=== PATIENT | female | born 1935 | race Caucasian/White ===

== ENCOUNTER → 2019-09-18 | Outpatient (CLI) | payer OTHER | LOC: SJCVC 16:12 | PROVIDERS: ATTEND Internal Medicine Cardiovascular Disease | DX: I44.0 Atrioventricular block, first degree (principal); R94.31 Abnormal electrocardiogram [ECG] [EKG]; I35.0 Nonrheumatic aortic (valve) stenosis; I10 Essential (primary) hypertension; E78.00 Pure hypercholesterolemia, unspecified; R00.2 Palpitations; Z95.2 Presence of prosthetic heart valve; Z82.49 Family history of ischemic heart disease and other diseases of the circulatory system; Z79.899 Other long term (current) drug therapy ==

== ENCOUNTER 2019-11-05 17:16 | Inpatient (IN) | payer OTHER ==
[~2019-11-05] VITALS: Ht 152.4 cm; Wt 49.9 kg
[2019-11-05 17:47] VITALS: BP 145/95
[2019-11-05 18:08] LABS: ABSOLUTE NEUTROPHILS 5.2 thou/uL (1.4-8.2); BASOPHILS 0.7 % (0.0-2.0); EOSINOPHILS 0.6 % (0.0-3.0); HEMATOCRIT 37.1 % (37.0-47.0); HEMOGLOBIN 12.5 gm/dL (12.0-15.0); LYMPHOCYTES 27.1 % (24.0-44.0); MCHC 33.8 g/dL (28.0-37.0); MCV 88.9 fL (80.0-100.0); MONOCYTES 7.6 % (1.0-8.0); RBC 4.17 mil/uL (4.20-5.00); RDW 13.2 % (10.5-14.5); WBC 8.1 thou/uL (4.0-11.0)
[2019-11-05 18:13] LABS: ANION GAP 11 mmol/L (7-16); BUN 18 mg/dL (7-18); CHLORIDE 98 mmol/L (98-107); CO2 26 mmol/L (21-32); CREATININE 1.2 mg/dL (0.6-1.0); GLUCOSE 140 mg/dL (74-106); POTASSIUM 3.8 mmol/L (3.5-5.1); SODIUM 135 mmol/L (136-145)
[2019-11-05 18:21] LABS: APTT 32.1 Seconds (24.5-32.8); PROTIME 10.3 Seconds (9.3-11.4)
[2019-11-05 18:22] LABS: ALBUMIN 3.6 g/dL (3.4-5.0); DIRECT BILIRUBIN 0.1 mg/dL (<0.1-0.2); SGOT 19 U/L (15-37); SGPT 20 U/L (30-65); TOTAL BILIRUBIN 0.5 mg/dL (0.2-1.0); TOTAL PROTEIN 8.8 g/dL (6.4-8.2); TROPONIN-I <0.06 ng/mL (<0.06)
[2019-11-05 18:29] LABS: LARGE PLATELETS FEW; PLATELET COUNT 249 thou/uL (150-400)
[2019-11-05] MEDS ORDERED: CALCIUM500 MG PO (18:41)
[2019-11-05] MEDS ORDERED: TRAMADOL 50 MG50 MG PO ×2 (18:42→22:59)
[2019-11-05] MEDS ORDERED: FISH OIL 1,0001 EAC9 PO (18:45)
[2019-11-05] MEDS ORDERED: ROXIFOL-D TA500 UNIT PO (18:46)
[2019-11-05] MEDS ORDERED: HYDROCHLOROTHIA25 M2 PO (18:46)
[2019-11-05] MEDS ORDERED: VOLTAREN100 GM TOP (18:47)
[2019-11-05] MEDS ORDERED: MELATONIN5 M6 PO (18:47)
[2019-11-05] MEDS ORDERED: AMBIEN 5 MG TABL5 M1 PO (18:47)
[2019-11-05] MEDS ORDERED: LIPITOR10 MG PO (18:48)
[2019-11-05] MEDS ORDERED: IRON160 M1 PO (18:48)
[2019-11-05] MEDS ORDERED: BETAMETHASONE D15 G4 TOP (18:49)
[2019-11-05] MEDS ORDERED: NORVASC10 MG PO (18:55)
[2019-11-05] MEDS ORDERED: TOPROL XL50 MG (18:56)
[2019-11-05 18:58] LABS: URINE BILIRUBIN NEGATIVE (Negative); URINE BLOOD NEGATIVE (Negative); URINE CLARITY CLEAR; URINE COLOR YELLOW; URINE GLUCOSE-RANDOM* NEGATIVE (Negative); URINE KETONES NEGATIVE (Negative); URINE LEUKOCYTES-REFLEX NEGATIVE (Negative); URINE NITRITE-REFLEX NEGATIVE (Negative); URINE PROTEIN (DIPSTICK) NEGATIVE (Negative); URINE UROBILINOGEN 0.2 E.U./dl (0.2-1.0)
[2019-11-05] MEDS ORDERED: NORVASC5 M1 PO (19:08)
[2019-11-05] MEDS ORDERED: TOPROL XL25 MG PO (19:08)
[2019-11-05 19:38] LABS: CHOLESTEROL 156 mg/dL (<200); HDL CHOLESTEROL 72 mg/dL (>40); LDL CHOLESTEROL 71 mg/dL (<100); TC:HDL 2.2 Ratio (Not establshd); TRIGLYCERIDE 68 mg/dL (<150); VLDL 14 mg/dL (<40)
[2019-11-05 20:04] VITALS: BP 143/76
--- NOTE | 2019-11-05 20:07 | NUR ---
Called to give report but telephone rings and nobody answers. Ringing for over 5 minutes. Finally had RN answer but was told she was am RN
[2019-11-05 20:41] VITALS: BP 143/76
--- NOTE | 2019-11-05 20:48 | NUR ---
Called again and was told Soniya CONRAD was busy with a pt and will be calling back
[2019-11-05] MEDS ORDERED: LOPRESSOR50 MG PO (21:09)
[2019-11-05 21:24] VITALS: BP 116/50
[2019-11-05 22:33] VITALS: BP 136/71
[2019-11-05] MEDS ORDERED: ferrous sulfate PO (22:55)
[2019-11-05] MEDS ORDERED: MELATONIN10 M1 PO (22:56)
[2019-11-05 23:00] VITALS: BP 136/71
[2019-11-05] MEDS ORDERED: ALEVE220 MG PO (23:00)
--- NOTE | 2019-11-05 23:00 | NUR ---
Arrived from ER around 2214 on cardizem gtt. @ 10 mg/hr.Titrated gtt. down to 5 mg/hr since she converted to SR with 1st degree AV blk. Denies any pain or discomfort.
--- NOTE | 2019-11-06 00:30 | NUR ---
Cardizem gtt. turned off. Chandan episode with pause, pt asymptomatic. COURT CRIER notified . Will continue to monitor.
[2019-11-06 03:47] VITALS: BP 133/46
[2019-11-06 06:05] LABS: CALCIUM 9.3 mg/dL (8.5-10.1); POTASSIUM 3.6 mmol/L (3.5-5.1)
--- NOTE | 2019-11-06 07:23 | EKG ---
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1935 Requested By: Tiana Ochoa Order Number: [id number] MD: Darrel Pugh Measurements Intervals [place] Rate: 150 P: IA: QRS: 49 QRSD: 77 T: -22 QT: 301 QTc: 476 Interpretive Statements Atrial fibrillation with rapid V-rate Low voltage, extremity leads Repolarization abnormality, prob rate related No previous ECG available for comparison Electronically Signed On 11-06-2019 7:23:07 CDT by Darrel Pugh [email or web address] <ELECTRONICALLY SIGNED> By: Darrel Pugh MD, FAC 11/06/19 0723 1724 1724 Darrel Pugh MD, [facility] /EPI
[2019-11-06 08:05] VITALS: BP 148/63
--- NOTE | 2019-11-06 09:53 | EKG ---
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
[2019-11-06] MEDS ORDERED: XARELTO15 MG PO (10:03)
[2019-11-06] MEDS ORDERED: METOPROLOL SUCC50 MG PO (10:03)
--- NOTE | 2019-11-06 13:10 | 2DMMODE ---
[facility] [place] [address] 2 D/M-MODE ECHOCARDIOGRAM Name: WILFREDO JI Room #: 355-P ADM IN M.R.#: [id number] Admission: 11/05/19 Attend Phys: Vandana Anderson MD Discharge: Date of : 31 Report #: [id number] THIS REPORT FOR: cc: Alexandr Fajardo MD Allen, Jay, MD Mancuso, Gerald M. MD [facility] ~ APPROVED REPORT Study performed: 11/06/2019 11:50:04 EXAM: Comprehensive 2D, Doppler, and color-flow Echocardiogram Patient Location: Bedside Room #: [facility] Status: routine BSA: 1.44 HR: 64 bpm BP: 134/79 mmHg Rhythm: NSR Other Information Study Quality: Good Indications Atrial Fibrillation 2D Dimensions RVDd: 40.14 mm IVSd: 8.82 (7-11mm) LVOT Diam: 14.92 (18-24mm) LVDd: 40.39 mm PWd: 9.65 (7-11mm) Ascending Ao: 22.85 (22-36mm) LVDs: 27.73 (25-40mm) Aortic Root: 23.72 mm IVC: 10.00 mm Volumes Left Atrial Volume (Systole) Single Plane 4CH: 81.96 mL Single Plane 2CH: 93.30 mL LA ESV Index: 67.00 mL/m2 Aortic Valve AoV Peak Alex.: 1.91 m/s AO Peak Gr.: 14.66 mmHg LVOT Max P.91 mmHg LVOT Mean P.53 mmHg LVOT Max V: 1.47 m/s LVOT Mean V: 1.00 m/s [facility] [address] [place] [address] 2 D/M-MODE ECHOCARDIOGRAM Name: WILFREDO JI Room #: 355-P [facility] IN .R.#: [id number] Admission: 11/05/19 Attend Phys: Vandana Anderson MD Discharge: Date of : 31 Report #: [id number] LVOT V1 VTI: 34.95 cm GARCIA Vmax: 1.36 cm2 SV (LVOT): 61.11 mL Mitral Valve E/A Ratio: 0.7 MV Decel. Time: 320.35 ms MV E Max Alex.: 1.20 m/s MV A Alex.: 1.79 m/s MV PHT: 92.90 ms IVRT: 115.34 ms Pulmonary Valve PV Peak Alex.: 1.05 m/s PV Peak Gr.: 4.41 mmHg Pulmonary Vein P Vein S: 0.74 m/s P Vein A: 0.34 m/s P Vein D: 0.33 m/s P Vein A Dur.: 110.7 msec P Vein S/D Ratio: 2.24 Tricuspid Valve TR Peak Alex.: 2.82 m/s TR Peak Gr.: 31.85 mmHg PA Pressure: 37.00 mmHg Left Ventricle The left ventricle is normal size. There is normal left ventricular wall thickness. The left ventricular systolic function is normal. The left ventricular ejection fraction is within the normal range. LVEF is 55-60%. Grade I - abnormal relaxation pattern. Right Ventricle The right ventricle is normal size. The right ventricular systolic function is normal. Atria Left atrium is dilated. Right atrium is dilated. Aortic Valve Prosthetic aortic valve is grossly normal in appearance. Mild aortic regurgitation. There is no aortic valvular stenosis. Mitral Valve The mitral valve is normal in structure. There is mitral annular calcification. Mild mitral regurgitation. No evidence of mitral valve stenosis. [facility] [address] [place] [address] 2 D/M-MODE ECHOCARDIOGRAM Name: WILFREDO JI Room #: 355-P [facility] IN .R.#: [id number] Admission: 11/05/19 Attend Phys: Vandana Anderson MD Discharge: Date of : 31 Report #: [id number] Tricuspid Valve The tricuspid valve is normal in structure. There is mild tricuspid regurgitation. Estimated PAP 37 mmHg. There is mild pulmonary hypertension. Pulmonic Valve The pulmonary valve is normal in structure. Trace to mild pulmonic regurgitation. Great Vessels The aortic root is normal in size. IVC is normal in size and collapses >50% with inspiration. Pericardium There is no pericardial effusion. <Conclusion> The left ventricle is normal size. LVEF is 55-60%. The right ventricle is normal size. Left atrium is dilated. Right atrium is dilated. Prosthetic aortic valve is grossly normal in appearance. Mild aortic regurgitation. There is no aortic valvular stenosis. The mitral valve is normal in structure. There is mitral annular calcification. Mild mitral regurgitation. There is mild tricuspid regurgitation. Estimated PAP 37 mmHg. There is mild pulmonary hypertension. The aortic root is normal in size. There is no pericardial effusion. <ELECTRONICALLY SIGNED> By: Modesto Fonseca MD, FACC 11/06/191309 09 09 Modesto Fonseca MD, FACC /INF
[2019-11-06 13:32] VITALS: BP 133/46
--- NOTE | 2019-11-06 13:41 | NUR ---
ASSUMED PATIENT CARE AT 0700. A/P X4. DEBIES CHEST PAIN. NO N/V. SR ON MONITOR. COVID NEGATIVE. DC HOME NOW.
--- NOTE | 2019-11-06 14:04 | NUR ---
INITIAL ASSESSMENT: SW reviewed chart and spoke with nursing and attending physician. Pt was admitted from home due to new afib during eye surgery. Pt placed in Enhanced Isolation to r/o COVID-19. Test is negative. Cardiology consulted and cleared pt for discharge. Pt to return to her eye doctor office this afternoon. SW spoke with pt via phone. Introduced role of SW. Pt is alert/orientated x 4. Pt reprots that she lives at home with family and is normally independent with ADLs. Pt has a cane to use if needed. Pt to discharge after echo and will follow up with her eye doctor today. Pt's family to provide transportation. No additional SW needs identified at this time, but is available to assist should needs arise.
--- NOTE | 2019-11-12 09:39 | HC ---
[facility] [place] [address] CONSULTATION Name: WILFREDO JI Room #: 355-P [facility] IN M.R.#: [id number] Admission: 11/05/19 Attend Phys: Vandana Anderson MD Discharge: 11/06/19 Date of : 31 Report #: [id number] THIS REPORT FOR: cc: Alexandr Fajardo MD Allen, Jay, MD Mancuso, Gerald M. MD FACC ~ CC: Modesto Young DATE OF SERVICE: 11/05/2019 CARDIOLOGY CONSULT HISTORY OF PRESENT ILLNESS: The patient is an 84-year-old female well known to myself. She was scheduled for some eye surgery today and subsequently found to be in atrial fibrillation, rapid ventricular response. Relatively asymptomatic. She came to [facility] for this. She is accompanied by 2 of her daughters. I do not have a history of atrial fibrillation with her. She denies PND, orthopnea or peripheral edema. I saw her approximately 1 month ago. The only laboratory work available currently is H and H of 12 and 37, white count 8.1. The chemistry is pending. She denies any real symptomatology of this, but her rate was 140s to 160s here. HOME MEDICATIONS: Tramadol, calcium, omega 3 for her eyes, metoprolol 25 b.i.d., amlodipine, HCTZ 25. PAST MEDICAL HISTORY: Positive for hypertension, DJD, also aortic valve replacement in 03/2016, a bioprosthetic valve. ALLERGIES: AMOXICILLIN, CLAVULANIC ACID. SOCIAL HISTORY: She is , has 2 daughters here involved with her. No alcohol or tobacco use. No illicit drug use. FAMILY HISTORY: Negative for premature coronary artery disease. PHYSICAL EXAMINATION: GENERAL: She is in no distress. The eye surgery did not happen (). VITAL SIGNS: Blood pressure is 140s/90s, pulse is 140-160. Has improved with IV Cardizem bolus and now we will add IV Lopressor. HEENT: Eyes reveal xanthelasmas. Pharynx is clear. NECK: Shows preserved upstrokes without JVD or bruits. LUNGS: Clear, prolonged expiratory phase. CARDIOVASCULAR: Tachycardic, S1 and S2. Faint systolic murmur. ABDOMEN: Soft. No HSM or abdominal bruit. [facility] [address] [place] [address] CONSULTATION Name: WILFREDO JI Room #: [address] [place] [address] IN M.R.#: [id number] Admission: 11/05/19 Attend Phys: Vandana Anderson MD Discharge: 11/06/19 Date of : 31 Report #: [id number] EXTREMITIES: Reveal trace of edemas. Pulses intact. NEUROLOGIC: Nonfocal. SKIN: Warm and dry without xanthoma or ulcer. MUSCULOSKELETAL: No gross joint deformity. ASSESSMENT: 1. Atrial fibrillation with rapid ventricular response. 2. History of aortic valve replacement, bioprosthetic 03/2016. 3. Hypertension. 4. Scheduled for cornea transplant. 5. Degenerative joint disease. RECOMMENDATIONS AND PLAN: I agree with IV Cardizem. We will also give IV bolus of Lopressor and initiate the Cardizem drip. Lovenox tonight for anticoagulation and then obviously will need long-term probable direct oral anticoagulant. Obtain echo Doppler, repeat EKG in the morning. Await the further labs. Chest x-ray has been obtained, but still pending. I will follow with you. Thank you for asking me to assist in the care of this patient. <ELECTRONICALLY SIGNED> By: Modesto Fonseca MD, FACC 11/12/19 0939 1824 25 Modesto Fonseca MD, FACC /nt
== END 2019-11-06 14:00 | disposition home or self-care (01) | DRG 309 ==
LOC: ER 17:16 → EROBS 18:51 → 3W 18:51
PROVIDERS: Emergency Medicine; Nurse Practitioner Family; ADMIT Internal Medicine; ATTEND Internal Medicine
DX: I48.91 Unspecified atrial fibrillation (principal); E87.1 Hypo-osmolality and hyponatremia; M19.90 Unspecified osteoarthritis, unspecified site; I10 Essential (primary) hypertension; Z20.828 Contact with and (suspected) exposure to other viral communicable diseases; Z88.1 Allergy status to other antibiotic agents; Z88.8 Allergy status to other drugs, medicaments and biological substances; Z95.2 Presence of prosthetic heart valve; Z79.899 Other long term (current) drug therapy
CPT/HCPCS: 10879

== ENCOUNTER → 2019-11-17 | Outpatient (CLI) | payer OTHER ==
[~2019-11-17] MED LIST: ALEVE220 MG PO; AMBIEN 5 MG TABL5 M1 PO; BETAMETHASONE D15 G4 TOP; CALCIUM500 MG PO; FISH OIL 1,0001 EAC9 PO; HYDROCHLOROTHIA25 M2 PO; IRON160 M1 PO; LIPITOR10 MG PO; LOPRESSOR50 MG PO; MELATONIN10 M1 PO; MELATONIN5 M6 PO; METOPROLOL SUCC50 MG PO; NORVASC10 MG PO; NORVASC5 M1 PO; ROXIFOL-D TA500 UNIT PO; TOPROL XL25 MG PO; TOPROL XL50 MG; TRAMADOL 50 MG50 MG PO; VOLTAREN100 GM TOP; XARELTO15 MG PO; ferrous sulfate PO
== END ==
LOC: SJCVC 14:01
PROVIDERS: ATTEND Internal Medicine Cardiovascular Disease
DX: I44.0 Atrioventricular block, first degree (principal); I21.29 ST elevation (STEMI) myocardial infarction involving other sites; E78.00 Pure hypercholesterolemia, unspecified; I35.0 Nonrheumatic aortic (valve) stenosis; R94.31 Abnormal electrocardiogram [ECG] [EKG]; I10 Essential (primary) hypertension; I48.0 Paroxysmal atrial fibrillation; Z95.2 Presence of prosthetic heart valve; Z95.4 Presence of other heart-valve replacement

== ENCOUNTER → 2020-06-03 | Outpatient (CLI) | payer OTHER | LOC: SJCVC 12:47 | PROVIDERS: ATTEND Internal Medicine Cardiovascular Disease | DX: R94.31 Abnormal electrocardiogram [ECG] [EKG] (principal); I48.0 Paroxysmal atrial fibrillation; I10 Essential (primary) hypertension; I35.0 Nonrheumatic aortic (valve) stenosis; E78.00 Pure hypercholesterolemia, unspecified; Z95.2 Presence of prosthetic heart valve; D64.9 Anemia, unspecified; M35.00 Sjogren syndrome, unspecified; Z79.899 Other long term (current) drug therapy; Z88.1 Allergy status to other antibiotic agents ==

== ENCOUNTER → 2020-12-26 | Outpatient (CLI) | payer OTHER | LOC: SJCVCIMAG 09:03 | PROVIDERS: ATTEND Internal Medicine Cardiovascular Disease | DX: R94.31 Abnormal electrocardiogram [ECG] [EKG] (principal); I08.8 Other rheumatic multiple valve diseases; I25.2 Old myocardial infarction; I10 Essential (primary) hypertension; E78.00 Pure hypercholesterolemia, unspecified; D64.9 Anemia, unspecified; F03.90 Unspecified dementia, unspecified severity, without behavioral disturbance, psychotic disturbance, mood disturbance, and anxiety; Z72.89 Other problems related to lifestyle; Z95.2 Presence of prosthetic heart valve; Z88.1 Allergy status to other antibiotic agents; Z79.899 Other long term (current) drug therapy ==